=== PATIENT | female | born 1955 | race Caucasian/White ===

== ENCOUNTER 2016-11-19 14:20 | Outpatient (CLI) | payer OTHER | END 2016-11-19 14:21 | disposition home or self-care (01) | LOC: CTENTCT 14:20 | PROVIDERS: ATTEND Specialist | DX: J32.9 Chronic sinusitis, unspecified (principal) | CPT/HCPCS: 70486 ==

== ENCOUNTER 2017-04-06 09:02 | Outpatient (CLI) | payer OTHER | END 2017-04-06 09:03 | disposition home or self-care (01) | LOC: BICMAMMO 09:02 | PROVIDERS: ATTEND Internal Medicine | DX: Z12.31 Encounter for screening mammogram for malignant neoplasm of breast (principal); R92.1 Mammographic calcification found on diagnostic imaging of breast; Z85.828 Personal history of other malignant neoplasm of skin | CPT/HCPCS: 77063; 77067 ==

== ENCOUNTER 2017-07-12 09:43 | Outpatient (CLI) | payer OTHER | END 2017-07-12 09:44 | disposition home or self-care (01) | LOC: BICULT 09:43 | PROVIDERS: ATTEND Internal Medicine | DX: R10.9 Unspecified abdominal pain (principal); R30.0 Dysuria; R93.8 Abnormal findings on diagnostic imaging of other specified body structures | CPT/HCPCS: 76700; 76856 ==

== ENCOUNTER 2017-08-26 07:32 | Outpatient (CLI) | payer OTHER ==
[2017-08-26 08:28] LABS: Estimated GFR-MDRD - POC Greater than 90
--- NOTE | 2017-08-26 10:18 | CT ---
CT ABDOMEN AND PELVIS WITH AND WITHOUT IV CONTRAST: Date: 08/26/17 HISTORY: Complex renal cyst. COMPARISON: None. FINDINGS: The lung bases are unremarkable. The attenuation of the liver is lower than that of the spleen consis tent with fatty infiltration. No hepatic mass or abnormal biliary ductal dilatation is seen. No calci fied gallstones are identified. The spleen, pancreas, and adrenal glands are normal. No calculi are seen in the kidneys, ureters, or the urinary bladder. No hydroureteronephrosis is note d on either side. There is a 2.0 x 1.5 x 1.5 cm exophytic cystic mass arising from the posteromedial cortex of the inferior pole of the left kidney. This demonstrates attenuation values of 8 Hounsfield units on noncontrasted CT, 20 Hounsfield units on the parenchymal phase, and 14 Hounsfield units on t he delayed phase. No calcifications, septae, or mural nodularity is seen. Since there is indeterminat e enhancement (10-15 Hounsfield units), a follow-up exam in 6 months is recommended. No free air, free fluid, or lymphadenopathy is identified. The appendix is normal. There are vascular calcifications without evidence of aneurysmal dilatation of the abdominal aorta. The patient is post hysterectomy. Degenerative changes present in the spine. There is normal contrast excretion into the ureters and urinary bladder. IMPRESSION: Bosniak Type 2F left renal cystic mass. A follow-up exam is recommended in 6 months. POS: [facility]
== END 2017-08-26 07:33 | disposition home or self-care (01) ==
LOC: CT 07:32 → BICCT 07:32 → CT 07:33
PROVIDERS: ATTEND Urology
DX: N28.1 Cyst of kidney, acquired (principal)
CPT/HCPCS: 74178; 82565

== ENCOUNTER 2018-03-08 08:05 | Outpatient (CLI) | payer OTHER ==
[2018-03-08] MEDS ORDERED: Gadobenate Dimeglumine 529 MG/1 ML (20ML VIAL) ONE (10:11)
--- NOTE | 2018-03-08 12:40 | MRI ---
MRI ABDOMEN WITH AND WITHOUT CONTRAST: HISTORY: M26.1, complex renal cyst. COMPARISON: 08/26/2017 TECHNIQUE: Multiplanar, multisequence MRI of the abdomen is performed prior to and after the intravenous adminis tration of contrast. FINDINGS: No pleural effusion. There are multiple enhancing gallbladder polyps along the anterior and posterio r wall, measuring up to 6 mm. No abnormal hepatic enhancing mass. The spleen is unremarkable, as well as the pancreas and adrenal glands. There is a left parapelvic cyst. The previously described Bosniak II left renal cyst is actually jus t a simple renal cyst with no enhancement. No internal septations. No nodularity. No abnormal enha ncing renal mass. No intrahepatic or extrahepatic biliary dilatation. No cystic mass of the pancreas. The background marrow signal of the spine is unremarkable. IMPRESSION: 1. Left parapelvic cyst, and the lesion in question, inferior pole, left kidney, is a simple cyst. No followup is required. 2. Multiple enhancing gallbladder polyps. POS: [facility]
== END 2018-03-08 08:06 | disposition home or self-care (01) ==
LOC: MRI 08:05
PROVIDERS: ATTEND Urology
DX: N28.1 Cyst of kidney, acquired (principal); N94.89 Other specified conditions associated with female genital organs and menstrual cycle; K82.4 Cholesterolosis of gallbladder
CPT/HCPCS: 74183; A9579

== ENCOUNTER 2018-04-07 09:28 | Outpatient (CLI) | payer OTHER | END 2018-04-07 09:29 | disposition home or self-care (01) | LOC: BICMAMMO 09:28 | PROVIDERS: ATTEND Internal Medicine | DX: Z12.31 Encounter for screening mammogram for malignant neoplasm of breast (principal); Z85.828 Personal history of other malignant neoplasm of skin | CPT/HCPCS: 77063; 77067 ==

== ENCOUNTER 2018-08-31 09:46 | Outpatient (CLI) | payer OTHER ==
--- NOTE | 2018-08-31 10:48 | ULT ---
GALLBLADDER ULTRASOUND: INDICATION: Gallbladder polyp. COMPARISON: Reference is made to MRI of 03/08/2018. FINDINGS: Small gallbladder polyps are again demonstrated. Polyp size measures up to approximately 5-6 mm. Th ere is no acute cholecystitis. No focal hepatic lesion is visualized. There is increased echogenici ty of the hepatic parenchyma relative to the adjacent right kidney. No ascites. The common duct mohamud sures 5 mm, within normal limits. IMPRESSION: 1. Multiple gallbladder polyps are again demonstrated, grossly stable given differences in imaging m odalities when comparing to 03/08/2018 MRI exam. Consider a continued followup 6-month ultrasound exa m for documentation of stability. 2. Hepatic steatosis. POS: [facility]
--- NOTE | 2018-08-31 11:22 | BD ---
DEXA BONE DENSITY STUDY: Date: 08/31/18 HISTORY: Postmenopausal. FINDINGS: Lumbar Spine: BMD (g/cm2) L1 0.837 T-Score: -1.4 L2 0.902 T-Score: -1.1 L3 0.889 T-Score: -1.8 L4 0.957 T-Score: -0.9 Total 0.898 T-Score: -1.4 Left Femoral Neck: 0.579 T-Score: -2.4 Total Femur: 0.813 T-Score: -1.1 IMPRESSION: 1. Osteopenia of the left femoral neck and lumbar spine. 2. 10 year fracture risk for major osteoporotic fracture is 11% and for a hip fracture is 2%. These fracture probabilities are calculated for an untreated patient. POS: [facility]
== END 2018-08-31 09:47 | disposition home or self-care (01) ==
LOC: BICULT 09:46
PROVIDERS: ATTEND Internal Medicine
DX: Z13.820 Encounter for screening for osteoporosis (principal); K82.4 Cholesterolosis of gallbladder; M85.89 Other specified disorders of bone density and structure, multiple sites; K76.0 Fatty (change of) liver, not elsewhere classified
CPT/HCPCS: 76705; 77080

== ENCOUNTER 2019-02-23 08:11 | Outpatient (CLI) | payer OTHER ==
--- NOTE | 2019-02-23 09:09 | RAD ---
LEFT HIP 2 VIEWS: Date: 02/23/2019 HISTORY: Left hip pain. FINDINGS/IMPRESSION: Mild degenerative changes are present. No fracture, dislocation, or bony destruction is identified. POS: [facility]
--- NOTE | 2019-02-23 09:16 | ULT ---
GALLBLADDER ULTRASOUND: Date: 02/23/2019 COMPARISON: 08/31/2018. HISTORY: Follow-up gallbladder polyps. FINDINGS: The head of the pancreas has a normal echotexture. The remainder of the pancreas is obscured by bowel gas. Heterogeneous echotexture of the liver may be due to hepatic steatosis or hepatocellular disease. Sub sequent limited evaluation for hepatic masses and intrahepatic biliary dilatation. Right hepatic lobe measures 14.8 cm. Portal vein is patent. Common bile duct diameter is 0.5 cm. Within the lumen of the gallbladder, there is evidence of a 0.5 cm and a 0.7 cm nonshadowing, nonmob ile echogenic focus, which may represent gallbladder wall polyps. Previously, one of these lesions me asured 0.5 cm. Gallbladder wall is not thickened. No pericholecystic fluid. Comment is not made on th e presence or absence of Lira's sign. Right renal cortical thinning. No hydronephrosis. Right kidney measures 9.3 x 5.3 x 4.7 cm. IMPRESSION: Nonshadowing, nonmobile hypoechoic foci within the lumen of the gallbladder, likely representing two separate gallbladder polyps. Based on the previous exam, there does not appear to be appreciable murillo ge. Follow-up ultrasound in 1 year is recommended. POS: [facility]
== END 2019-02-23 08:12 | disposition home or self-care (01) ==
LOC: BICULT 08:11
PROVIDERS: ATTEND Internal Medicine
DX: M25.552 Pain in left hip (principal); K82.4 Cholesterolosis of gallbladder; M16.12 Unilateral primary osteoarthritis, left hip; R93.2 Abnormal findings on diagnostic imaging of liver and biliary tract
CPT/HCPCS: 36415; 76705; 80061

== ENCOUNTER 2019-04-09 09:57 | Outpatient (CLI) | payer OTHER ==
--- NOTE | 2019-04-09 11:19 | MMO ---
Bilateral MAMMO Bilat Screen [facility]. CLINICAL HISTORY: Patient is 63 years old and is seen for screening. The patient has no family history of breast cancer. The patient has a history of Skin cancer. VIEWS: The views performed were: bilateral craniocaudal with tomosynthesis and bilateral mediolateral oblique with tomosynthesis. FILMS COMPARED: The present examination has been compared to prior imaging studies performed at [facility] on 04/03/2015, 04/05/2016, 04/06/2017 and 04/07/2018. This study has been interpreted with the assistance of computer-aided detection. MAMMOGRAM FINDINGS: The breasts are heterogeneously dense, which could obscure a lesion on mammography. There are no suspicious masses, suspicious calcifications, or new areas of architectural distortion. IMPRESSION: THERE IS NO MAMMOGRAPHIC EVIDENCE OF MALIGNANCY. A ROUTINE FOLLOW-UP MAMMOGRAM IN 1 YEAR IS RECOMMENDED. THE RESULTS OF THIS EXAM WERE SENT TO THE PATIENT. ACR BI-RADS Category 1 - Negative MAMMOGRAPHY NOTE: 1. A negative mammogram report should not delay a biopsy if a dominant of clinically suspicious mass is present. 2. Approximately 10% to 15% of breast cancers are not detected by mammography. 3. Adenosis and dense breasts may obscure an underlying neoplasm. Reported by: Jorgito MCDONALD Electonically Signed: [id number]
== END 2019-04-09 09:58 | disposition home or self-care (01) ==
LOC: BICMAMMO 09:57
PROVIDERS: ATTEND Internal Medicine
DX: Z12.31 Encounter for screening mammogram for malignant neoplasm of breast (principal); Z85.828 Personal history of other malignant neoplasm of skin
CPT/HCPCS: 77063; 77067

== ENCOUNTER 2019-09-04 07:39 | Outpatient (CLI) | payer MEDICARE ==
--- NOTE | 2019-09-04 08:40 | ULT ---
GALLBLADDER ULTRASOUND: HISTORY: Right upper quadrant pain. COMPARISON: Comparison is made with the exam of 02/23/2019. FINDINGS: The liver demonstrates coarse echogenicity consistent with fatty liver. No focal mass or intrahepati c ductal dilatation is seen. No gallstones, gallbladder wall thickening, or pericholecystic fluid are seen. The 5 and 7 mm gallbl adder polyps are stable. The common duct measures 4 mm in diameter. No free fluid is seen in Moriso n's pouch. The right kidney is unremarkable. IMPRESSION: 1. Fatty liver. 2. Stable gallbladder polyps since 02/23/2019. POS: [facility]
== END 2019-09-04 07:40 | disposition home or self-care (01) ==
LOC: BICULT 07:39
PROVIDERS: ATTEND Internal Medicine
DX: K82.4 Cholesterolosis of gallbladder (principal); K76.0 Fatty (change of) liver, not elsewhere classified
CPT/HCPCS: 76705

== ENCOUNTER 2019-12-03 03:54 | Emergency (ER) | payer MEDICARE ==
[2019-12-03] MEDS ORDERED: Acetaminophen 500 MG TAB ONE (04:05)
[2019-12-03] MEDS ORDERED: Ondansetron PF 4 MG/2 ML Vial ONE (04:48)
--- NOTE | 2019-12-03 07:22 | CT ---
PRELIMINARY REPORT/[facility]/EMERGENCY AFTER HOURS PROCEDURE: EXAM: CT Head Without Intravenous Contrast. CLINICAL HISTORY: ER 4... PT WAS WALKING TO BATHROOM AND RAN INTO DOOR FRAME AND FELL. LOC+. NAUSEA; UPPER BACK PAIN TECHNIQUE: Axial computed tomography images of the head/brain without intravenous contrast. COMPARISON: October 04, 2019 FINDINGS: BRAIN: No acute intraparenchymal hemorrhage. No mass lesion. No CT evidence for acute territorial inf arct. No midline shift or extra-axial collection. VENTRICLES: No hydrocephalus. ORBITS: The orbits are unremarkable. SINUSES AND MASTOIDS: The paranasal sinuses and mastoid air cells are clear. SOFT TISSUES: No significant facial or scalp soft tissue swelling evident. No radiopaque foreign body is seen. BONES: No acute skull fracture. IMPRESSION: No acute intracranial abnormality. ELECTRONICALLY SIGNED BY: Ankit Guadalupe MD Dec 03, 2019 4:29:05 AM CDT FINAL REPORT HEAD CT WITHOUT CONTRAST: HISTORY: Fall. Pain. Loss of consciousness. COMPARISON: 10/04/2019. FINDINGS: Hemorrhage: No intraparenchymal hemorrhage or extra-axial hematoma. Brain parenchyma: Cortical navas-white matter differentiation is preserved. No mass effect or midline shift. Basilar cisterns are patent. Ventricular system: Ventricles and sulci are patent and symmetric. Calvarium: Intact. Sinuses and mastoid air cells: Adequate aeration. IMPRESSION: 1. This report is in agreement with initial report by [facility]. 2. No acute intracranial process. Transcribed Date/Time: 12/03/2019 8:09 AM
--- NOTE | 2019-12-03 07:55 | CT ---
PRELIMINARY REPORT/[facility]/EMERGENCY AFTER HOURS PROCEDURE: EXAM: CT Chest Without Intravenous Contrast. CLINICAL HISTORY: ER 4... UPPER BACK PAIN; PT WAS WALKING TO BATHROOM AND RAN INTO DOOR FRAME AND FEL L. LOC+. NAUSEA *No IV contrast, pt allergic to iodione TECHNIQUE: Axial computed tomography images of the chest without intravenous contrast. COMPARISON: None provided. FINDINGS: LUNGS: No pulmonary mass. No focal airspace consolidation. PLEURAL SPACES: No pleural effusion. No pneumothorax. HEART AND MEDIASTINUM: No cardiomegaly. No significant pericardial effusion. Aorta is normal in juna ro[place]. LYMPH NODES: No lymphadenopathy. CHEST WALL AND UPPER ABDOMEN: The upper abdominal solid organs are unremarkable. The chest wall is un remarkable. BONES: No acute osseous abnormality. Incidental rib anomaly on the right. IMPRESSION: No acute intra-thoracic abnormality. ELECTRONICALLY SIGNED BY: Ankit Guadalupe MD Dec 03, 2019 4:31:34 AM CDT FINAL REPORT CHEST CT WITHOUT CONTRAST LIMITED CT OF THE THORACIC SPINE: COMPARISON: None HISTORY: Fall. Pain. Trauma. FINDINGS: Mediastinum: Limited evaluation by the lack of IV contrast. No mass, lymphadenopathy or hematoma. Heart: Normal heart size. No significant pericardial fluid. Aorta: Normal caliber aorta. Lungs: Dependent atelectatic changes. No masses or consolidation. No pleural effusion or pneumothorax . Osseous structures: No lytic or blastic lesions. No evidence of fractures. Limited CT of the thoracic spine: No fractures or malalignment. Multilevel degenerative change. IMPRESSION: 1. This report is in agreement with initial report by [facility]. 2. No posttraumatic change. Transcribed Date/Time: 12/03/2019 8:13 AM
== END 2019-12-03 04:52 | disposition home or self-care (01) ==
LOC: ERS 03:54
DX: S06.9X9A Unspecified intracranial injury with loss of consciousness of unspecified duration, initial encounter (principal); S30.1XXA Contusion of abdominal wall, initial encounter; E78.5 Hyperlipidemia, unspecified; E78.00 Pure hypercholesterolemia, unspecified; I10 Essential (primary) hypertension; Z79.899 Other long term (current) drug therapy; W18.09XA Striking against other object with subsequent fall, initial encounter; Y92.002 Bathroom of unspecified non-institutional (private) residence as the place of occurrence of the external cause
CPT/HCPCS: 70450; 71250; 96374; J2405

== ENCOUNTER 2020-04-10 09:18 | Outpatient (CLI) | payer MEDICARE ==
--- NOTE | 2020-04-10 09:56 | MMO ---
Bilateral MAMMO Bilat Screen [facility]. CLINICAL HISTORY: Patient is 64 years old and is seen for screening. The patient has no family history of breast cancer. The patient has a history of Skin cancer. VIEWS: The views performed were: bilateral craniocaudal with tomosynthesis and bilateral mediolateral oblique with tomosynthesis. FILMS COMPARED: The present examination has been compared to prior imaging studies performed at [facility] on 04/05/2016, 04/06/2017, 04/07/2018 and 04/09/2019. This study has been interpreted with the assistance of computer-aided detection. MAMMOGRAM FINDINGS: The breasts are heterogeneously dense, which could obscure a lesion on mammography. There is a new mass measuring 6 millimeters with circumscribed margins seen in the middle upper-outer region of the left breast. In the right breast, there are no suspicious masses, calcifications or areas of architectural distortion. IMPRESSION: NEW MASS IN THE LEFT BREAST REQUIRES ADDITIONAL EVALUATION. AN ULTRASOUND EXAM IS RECOMMENDED. THE RESULTS OF THIS EXAM WERE SENT TO THE PATIENT. ACR BI-RADS Category 0 - Incomplete: Need additional imaging evaluation. [facility] will notify the patient of the need for additional imaging services. MAMMOGRAPHY NOTE: 1. A negative mammogram report should not delay a biopsy if a dominant of clinically suspicious mass is present. 2. Approximately 10% to 15% of breast cancers are not detected by mammography. 3. Adenosis and dense breasts may obscure an underlying neoplasm. Reported by: RISSA IGLESIAS MD Electonically Signed: [id number]
== END 2020-04-10 09:19 | disposition home or self-care (01) ==
LOC: BICMAMMO 09:18
PROVIDERS: ATTEND Internal Medicine
DX: Z12.31 Encounter for screening mammogram for malignant neoplasm of breast (principal); Z85.828 Personal history of other malignant neoplasm of skin; N63.21 Unspecified lump in the left breast, upper outer quadrant
CPT/HCPCS: 77063; 77067

== ENCOUNTER 2020-04-15 07:47 | Outpatient (CLI) | payer MEDICARE | END 2020-04-15 07:48 | disposition home or self-care (01) | LOC: BICULT 07:47 | PROVIDERS: ATTEND Internal Medicine | DX: R92.8 Other abnormal and inconclusive findings on diagnostic imaging of breast (principal) ==

== ENCOUNTER 2021-04-13 09:48 | Outpatient (CLI) | payer MEDICARE | END 2021-04-13 09:49 | disposition home or self-care (01) | LOC: BICMAMMO 09:48 | PROVIDERS: ATTEND Internal Medicine | DX: Z12.31 Encounter for screening mammogram for malignant neoplasm of breast (principal); Z13.820 Encounter for screening for osteoporosis; M85.851 Other specified disorders of bone density and structure, right thigh; M85.852 Other specified disorders of bone density and structure, left thigh; Z78.0 Asymptomatic menopausal state; Z85.828 Personal history of other malignant neoplasm of skin | CPT/HCPCS: 77063; 77067; 77080 ==

== ENCOUNTER 2021-11-17 15:16 | Outpatient (CLI) | payer MEDICARE | END 2021-11-17 15:17 | disposition home or self-care (01) | LOC: BICRAD 15:16 | PROVIDERS: ATTEND Internal Medicine | DX: M54.2 Cervicalgia (principal); M47.812 Spondylosis without myelopathy or radiculopathy, cervical region | CPT/HCPCS: 36415; 72040; 82607; 82746 ==

== ENCOUNTER 2021-11-30 09:35 | Outpatient (CLI) | payer MEDICARE | END 2021-11-30 09:36 | disposition home or self-care (01) | LOC: MRI 09:35 | PROVIDERS: ATTEND Internal Medicine | DX: R51.9 Headache, unspecified (principal); M54.2 Cervicalgia; M47.812 Spondylosis without myelopathy or radiculopathy, cervical region; E04.1 Nontoxic single thyroid nodule | CPT/HCPCS: 70551; 72141 ==

== ENCOUNTER 2022-01-26 12:27 | Day surgery (SDC) | payer MEDICARE ==
[2022-01-25 13:23] VITALS: BMI 29.2
[2022-01-26] MEDS ORDERED: Sodium Bicarbonate 2.5 MEQ/5 ML VIAL ONE (12:42)
[2022-01-26] MEDS ORDERED: Lidocaine 2% PF 5 ML VIAL ONE (12:42)
[2022-01-26 13:56] VITALS: BP 139/80
== END 2022-01-26 13:45 | disposition home or self-care (01) ==
LOC: ULT 12:27
PROVIDERS: ATTEND Student in an Organized Health Care Education/Training Program
PROC: 0G9G3ZX Drainage of Left Thyroid Gland Lobe, Percutaneous Approach, Diagnostic (ICD-10-PCS; principal; 2022-01-26)
DX: E04.1 Nontoxic single thyroid nodule (principal); I10 Essential (primary) hypertension; E78.5 Hyperlipidemia, unspecified; M26.629 Arthralgia of temporomandibular joint, unspecified side; J34.2 Deviated nasal septum; I95.1 Orthostatic hypotension; Z87.891 Personal history of nicotine dependence; Z79.899 Other long term (current) drug therapy; Z88.1 Allergy status to other antibiotic agents; Z91.018 Allergy to other foods; Z91.040 Latex allergy status; Z91.041 Radiographic dye allergy status
CPT/HCPCS: 10005; 88173; 88305; J2001

== ENCOUNTER 2022-04-21 09:56 | Outpatient (CLI) | payer MEDICARE | END 2022-04-21 09:57 | disposition home or self-care (01) | LOC: BICMAMMO 09:56 | PROVIDERS: ATTEND Internal Medicine | DX: Z12.31 Encounter for screening mammogram for malignant neoplasm of breast (principal); R92.1 Mammographic calcification found on diagnostic imaging of breast; Z91.89 Other specified personal risk factors, not elsewhere classified; Z85.828 Personal history of other malignant neoplasm of skin | CPT/HCPCS: 77063; 77067 ==

== ENCOUNTER 2022-09-07 12:13 | Outpatient (CLI) | payer MEDICARE | END 2022-09-07 12:14 | disposition home or self-care (01) | LOC: RAD 12:13 | PROVIDERS: ATTEND Internal Medicine | DX: M54.50 Low back pain, unspecified (principal); M47.816 Spondylosis without myelopathy or radiculopathy, lumbar region; M47.818 Spondylosis without myelopathy or radiculopathy, sacral and sacrococcygeal region | CPT/HCPCS: 72100; 72220 ==

== ENCOUNTER 2023-03-17 09:18 | Outpatient (CLI) | payer MEDICARE | END 2023-03-17 09:19 | disposition home or self-care (01) | LOC: ULT 09:18 | PROVIDERS: ATTEND Internal Medicine | DX: K82.4 Cholesterolosis of gallbladder (principal); I10 Essential (primary) hypertension; K76.0 Fatty (change of) liver, not elsewhere classified | CPT/HCPCS: 76705 ==